=== PATIENT | female | born 1995 | race Asian ===

== ENCOUNTER 2020-01-10 21:09 | Emergency (ER) | payer MEDICAID ==
[~2020-01-10] VITALS: Ht 165.1 cm; Wt 64.0 kg
[2020-01-10] MEDS ORDERED: ACETAMINOPHEN 325MG TABLET PO STA (21:32)
[2020-01-10 22:01] LABS: CLARITY URINE CLEAR (CLEAR); COLOR URINE YELLOW (YELLOW); KETONES URINE NEGATIVE (NEGATIVE); LEUKOCYTE ESTERASE URINE NEGATIVE (NEGATIVE); NITRITE URINE NEGATIVE (NEGATIVE); OCCULT BLOOD URINE NEGATIVE (NEGATIVE); PROTEIN URINE NEGATIVE (NEGATIVE); SPECIFIC GRAVITY URINE 1.012 (1.005-1.030); UROBILINOGEN URINE 0.2 E.U./dL (0.2-1.0)
[2020-01-10] MEDS ORDERED: IBUPROFEN 600MG TABLET PO ONE (23:15)
[2020-01-10 23:31] VITALS: BP 118/74
== END 2020-01-10 23:35 | disposition home or self-care (01) ==
LOC: ER 21:09
DX: B34.9 Viral infection, unspecified (principal); Z03.818 Encounter for observation for suspected exposure to other biological agents ruled out
CPT/HCPCS: 71045; 81003; 87635; 93005; 99285; C9803